=== PATIENT | female | born 1970 | race African-American/Black ===

== ENCOUNTER 2018-12-01 23:15 | Emergency (ER) | payer MEDICAID ==
[~2018-12-01] VITALS: Ht 172.7 cm; Wt 63.5 kg
[~2018-12-01 23:15] MED LIST: DOXYCYCLINE MO100 MG ORAL; FLUCONAZOLE100 MG ORAL; METRONIDAZOLE500 MG ORAL; NKM; SYNTHROID100 MCG ORAL
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
[2018-12-01 23:31] VITALS: BP 120/82
[2018-12-01] MEDS ORDERED: Lidocaine HCl 2% Jelly 6ml Tube TOPIC ONE ×2 (23:39→23:45)
[2018-12-01] MEDS ORDERED: SILVER SULFADIA50 GM TP (23:43)
[2018-12-01] MEDS ORDERED: DOXYCYCLINE MO100 MG ORAL (23:43)
[2018-12-01] MEDS ORDERED: NORCO 5-325 TA1 EACH ORAL (23:43)
[2018-12-01] MEDS ORDERED: Lidocaine 1% Plain 30 ml INJ ONE (23:51)
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
[2018-12-02] MEDS ORDERED: HYDROcodone/Acetamin 5/325 tab ORAL ONE (00:15)
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
[2018-12-02 00:26] VITALS: BP 120/82
== END 2018-12-02 00:25 | disposition home or self-care (01) ==
LOC: EMR 23:35
DX: T25.021A Burn of unspecified degree of right foot, initial encounter (principal); N73.9 Female pelvic inflammatory disease, unspecified; T31.0 Burns involving less than 10% of body surface; X10.2XXA Contact with fats and cooking oils, initial encounter; Y92.9 Unspecified place or not applicable
CPT/HCPCS: 96372; J0696; J2001; Z7502; 99283

== ENCOUNTER 2018-12-10 04:35 | Emergency (ER) | payer MEDICAID ==
[~2018-12-10] VITALS: Ht 172.7 cm; Wt 65.8 kg
[~2018-12-10 04:35] MED LIST changes: +NORCO 5-325 TA1 EACH ORAL; +SILVER SULFADIA50 GM TP
--- NOTE | 2018-12-10 04:39 | NUR ---
called for triage; not in waiting room.
--- NOTE | 2018-12-10 04:49 | NUR ---
ED Nurse Note: called for triage; not in waiting room
--- NOTE | 2018-12-10 04:59 | NUR ---
ED Nurse Note: called for triage; not in waiting room.
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
[2018-12-10] MEDS ORDERED: CEPHALEXIN500 M1 ORAL (05:30)
[2018-12-10] MEDS ORDERED: BACTRIM DS TAB1 EAC1 ORAL (05:30)
[2018-12-10] MEDS ORDERED: Tetanus/Diptheria/Pertussis IM ONE (05:30)
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
[2018-12-10 05:31] VITALS: BP 135/84
[2018-12-10 05:37] VITALS: BP 135/84
--- NOTE | 2018-12-10 05:37 | NUR ---
ER DISCHARGE NOTE: Patient is cleared to be discharged per ERMD, pt is aox4, on room air, with stable vital signs. pt was given dc and prescription instructions, pt was able to verbalize understanding, pt id band removed. pt is able to ambulate with steady gait. pt took all belongings.
== END 2018-12-10 05:40 | disposition home or self-care (01) ==
LOC: EMR 05:33
DX: T25.021A Burn of unspecified degree of right foot, initial encounter (principal); Z23 Encounter for immunization; F17.200 Nicotine dependence, unspecified, uncomplicated; F19.10 Other psychoactive substance abuse, uncomplicated; T31.0 Burns involving less than 10% of body surface; X08.8XXA Exposure to other specified smoke, fire and flames, initial encounter; Y92.9 Unspecified place or not applicable
CPT/HCPCS: 90471; 90715; Z7502; 99282